=== PATIENT | female | born 1940 | race African-American/Black ===

== ENCOUNTER 2024-12-29 21:08 | Inpatient (IN) | payer OTHER ==
[~2024-12-29] VITALS: Ht 160 cm; Wt 71.7 kg
[2024-12-29 22:47] LABS: EOSINOPHILS % 2.4 % (0.0-5.0); HEMATOCRIT. 38.1 % (36.0-48.0); LYMPHOCYTES % 25.3 % (20.0-50.0); MEAN CORPUSCULAR HEMOGLOBIN 28.5 pg (28.0-32.0); MEAN CORPUSCULAR HGB CONC 34.1 g/dL (31.0-37.0); MEAN CORPUSCULAR VOLUME 83.5 fL (81.0-99.0); MEAN PLATELET VOLUME 7.7 fl (7.4-10.4); MONOCYTES % 9.2 % (2.0-8.0); NEUTROPHILS % 62.1 % (40.0-76.0); PLATELET 237 x1000/uL (130-400); RED BLOOD CELL COUNT 4.56 mill/uL (4.2-5.4); RED CELL DISTRIBUTION WIDTH 15.3 % (11.6-14.6)
[2024-12-29 22:53] LABS: CHLORIDE 108 mEq/L (98-107); POTASSIUM 3.8 mEq/L (3.5-5.1); SODIUM 141 mEq/L (136-145)
[2024-12-29 22:54] LABS: CALCIUM 9.2 mg/dL (8.7-10.4); CARBON DIOXIDE 29 mEq/L (21-32)
[2024-12-29 22:59] LABS: GLUCOSE 121 mg/dL (70-105); UREA NITROGEN BLOOD 15 mg/dL (9-23)
[2024-12-30] VITALS: BP 150/64; PULSE 58; RESP 18; TEMP 36.3; O2SAT 100
[2024-12-30 04:00] VITALS: BP_SYST 128; BP_SYST 150; BP_DIAS 59; BP_DIAS 64; PULSE 58; RESP 18; TEMP 36.3; TEMP 36.8; O2SAT 100
[2024-12-30] MEDS ORDERED: IPRATROPIUM/ALBUTEROL 0.5-3(2.5)MG/3ML NEB HHN PRN (06:45)
[2024-12-30] MEDS ORDERED: NALOXONE HCL 0.4MG/ML VIAL IV PRN (06:45)
[2024-12-30] MEDS ORDERED: ONDANSETRON HCL 4MG/2ML INJ IV PRN (06:45)
[2024-12-30] MEDS ORDERED: ACETAMINOPHEN 325MG TABLET PO PRN (06:45)
[2024-12-30] MEDS ORDERED: DOCUSATE SODIUM 100MG CAPSULE PO PRN (06:45)
[2024-12-30] MEDS ORDERED: HYDROCODONE/ACETAMINOPHEN 5/325MG TABLET PO PRN (06:45)
[2024-12-30 08:00] VITALS: BP 129/58; PULSE 61; RESP 18; TEMP 36.7; O2SAT 100
[2024-12-30] MEDS ORDERED: PNEUMOCOCCAL 20-VAL CONJ-DIP CRM 0.5ML IM ONE (08:15)
[2024-12-30 12:00] VITALS: BP 131/62; PULSE 63; RESP 19; TEMP 36.6; O2SAT 100
[2024-12-30 16:00] VITALS: BP 168/60; PULSE 67; RESP 19; TEMP 36.4; O2SAT 98
[2024-12-30] MEDS: CLONIDINE 0.1MG TABLET PO PRN (16:01)
[2024-12-30] MEDS ORDERED: ATEN-42 PO (16:44)
[2024-12-30] MEDS ORDERED: LEVO75TA7 PO (16:44)
[2024-12-30] MEDS ORDERED: AMLO5TAB88 PO (16:44)
[2024-12-30] MEDS: AMLODIPINE 5MG TABLET PO SCH (18:27)
[2024-12-30] MEDS: ATENOLOL 25MG TABLET PO SCH (18:28)
[2024-12-30] MEDS: FAMOTIDINE 20MG TABLET PO SCH (22:05)
[2024-12-31 04:00] VITALS: BP 130/67; PULSE 65; RESP 17; TEMP 36.7; O2SAT 99
[2024-12-31 06:58] LABS: BASOPHILS % 1.1 % (0.0-2.0); EOSINOPHILS % 4.1 % (0.0-5.0); HEMATOCRIT. 39.4 % (36.0-48.0); HEMOGLOBIN. 13.5 g/dL (12.0-16.0); LYMPHOCYTES % 36.6 % (20.0-50.0); MEAN CORPUSCULAR HEMOGLOBIN 28.7 pg (28.0-32.0); MEAN CORPUSCULAR HGB CONC 34.3 g/dL (31.0-37.0); MEAN CORPUSCULAR VOLUME 83.7 fL (81.0-99.0); MEAN PLATELET VOLUME 8.1 fl (7.4-10.4); MONOCYTES % 9.1 % (2.0-8.0); NEUTROPHILS % 49.1 % (40.0-76.0); PLATELET 246 x1000/uL (130-400); RED BLOOD CELL COUNT 4.71 mill/uL (4.2-5.4); RED CELL DISTRIBUTION WIDTH 15.3 % (11.6-14.6); WHITE BLOOD COUNT 3.5 x1000/uL (4.5-11.0)
[2024-12-31 07:08] LABS: CARBON DIOXIDE 30 mEq/L (21-32); CHLORIDE 102 mEq/L (98-107); POTASSIUM 4.1 mEq/L (3.5-5.1); SODIUM 139 mEq/L (136-145)
[2024-12-31 07:09] LABS: CALCIUM 9.2 mg/dL (8.7-10.4)
[2024-12-31 07:14] LABS: CREATININE 0.8 mg/dL (0.6-1.0); GLUCOSE 88 mg/dL (70-105); UREA NITROGEN BLOOD 7 mg/dL (9-23)
[2024-12-31 08:00] VITALS: BP 134/63; PULSE 59; RESP 18; TEMP 36.3; O2SAT 97
[2024-12-31] MEDS: LEVOTHYROXINE SODIUM 75MCG TABLET PO SCH (08:55)
[2024-12-31 12:00] VITALS: BP 127/66; PULSE 65; RESP 19; TEMP 36.2; O2SAT 98
[2024-12-31] MEDS: ACETAMINOPHEN 325MG TABLET PO PRN (12:59)
[2024-12-31 14:33] VITALS: BP 132/76; PULSE 72; TEMP 97.8; O2SAT 99
== END 2024-12-31 13:26 | disposition short-term general hospital (02) | DRG 914 ==
LOC: ER 21:08 → 6EST 23:38 → ENRESERV 12-30 00:59
PROVIDERS: ADMIT Family Medicine Adult Medicine; ATTEND Family Medicine Adult Medicine
DX: S09.8XXA Other specified injuries of head, initial encounter (principal); I10 Essential (primary) hypertension; E78.5 Hyperlipidemia, unspecified; M54.2 Cervicalgia; W01.0XXA Fall on same level from slipping, tripping and stumbling without subsequent striking against object, initial encounter; Z88.1 Allergy status to other antibiotic agents; Y93.89 Activity, other specified; Y92.89 Other specified places as the place of occurrence of the external cause; Y99.8 Other external cause status
CPT/HCPCS: 36415; 71045; 80048; 85025; 97161; 99285; A4606